=== PATIENT | male | born 1990 | race Two or more races ===

== ENCOUNTER 2019-06-17 15:12 | Emergency (ER) | payer MEDICAID ==
[~2019-06-17] VITALS: Ht 175.3 cm; Wt 112.0 kg
--- NOTE | 2019-06-17 16:18 | NUR ---
PT [id number]. ambulatory. c/o cough and congestion x 2 days; + fever and sore throat. MD at bedside for eval. Will continue to monitor. no acute distress noted.
[2019-06-17] MEDS ORDERED: ACETAMINOPHEN ES 500 MG TABLET ONE (16:29)
[2019-06-17] MEDS ORDERED: IBUPROFEN 600 MG TABLET PO ONE (16:30)
[2019-06-17] MEDS: IBUPROFEN 600 MG TABLET PO ONE (16:32)
[2019-06-17] MEDS: ACETAMINOPHEN ES 500 MG TABLET PO ONE (16:32)
--- NOTE | 2019-06-17 16:37 | NUR ---
Patient discharged to home in stable condition. Written and verbal after care instructions given. Patient verbalizes understanding of instruction and RX. VSS. Pt ambulated with steady gait.
[2019-06-17 16:38] VITALS: BP 126/82
== END 2019-06-17 16:39 | disposition home or self-care (01) ==
LOC: ER 15:20
DX: J11.1 Influenza due to unidentified influenza virus with other respiratory manifestations (principal); I10 Essential (primary) hypertension